=== PATIENT | female | born 1955 | race Caucasian/White ===

== ENCOUNTER → 2023-07-02 10:14 | Outpatient (REF) | payer OTHER, SELFPAY | LOC: MRI 3T 10:14 | PROVIDERS: ATTENDING PHYSICIAN Family Medicine | DX: Z00.00 Encounter for general adult medical examination without abnormal findings (principal); R41.0 Disorientation, unspecified | CPT/HCPCS: 70551 ==

== ENCOUNTER → 2024-08-26 14:12 | Outpatient (REF) | payer OTHER, SELFPAY | LOC: WDC 14:12 | PROVIDERS: ATTENDING PHYSICIAN Family Medicine | DX: Z12.31 Encounter for screening mammogram for malignant neoplasm of breast (principal) | CPT/HCPCS: 77063; 77067 ==